=== PATIENT | female | born 1945 | race Caucasian/White ===

== ENCOUNTER → 2016-02-13 | Outpatient (CLI) | payer OTHER, BC ==
--- NOTE | 2016-02-13 13:56 | MA ---
Bilateral Digital Screening Mammography Clinical History: 70-year-old female with no family history of breast cancer who presents for routine annual mammographic screening. Technique: Digital CC and MLO views of each breast are compared to previous studies dated January 08, 2015, December 19, 2013, December 15, 2012, December 02, 2011, November 07, 2010, and October 07, 2009 . This examination was processed by the [employer] computer-aided detection system. The mammography technol ogist indicates the patient told her that she has an arthritic left shoulder. There is therefore limi terri left MLO view obtained with suboptimal inclusion of the posterior pectoralis muscle. Breast Density: Type B. CAD Evaluation: Reviewed. Findings: There is a mild residual fibroglandular pattern, which is stable. Benign-appearing intramam byron lymph nodes are seen on the right, and there are benign-appearing right axillary lymph nodes als o identified. There are no new suspicious clustered microcalcifications. Impression: Negative mammography. BI-RADS Category: 1. Recommendation: Routine annual mammographic screening. [facility] will send a result letter to the patient. Negative mammography should not preclude additional work-up of a clinically suspicious finding. The patient's information is entered into a reminder system with a target due date for her next mammo gram.
== END ==
LOC: FIMAGING 12:12
DX: Z12.31 Encounter for screening mammogram for malignant neoplasm of breast (principal)
CPT/HCPCS: G0202

== ENCOUNTER → 2017-02-15 | Outpatient (CLI) | payer OTHER, BC | LOC: FIMAGING 10:04 | PROVIDERS: ATTEND Legal Medicine | DX: Z12.31 Encounter for screening mammogram for malignant neoplasm of breast (principal) ==

== ENCOUNTER → 2017-03-02 | Outpatient (CLI) | payer OTHER, BC | LOC: BMCIMAGING 12:36 | PROVIDERS: ATTEND Family Medicine | DX: Z13.820 Encounter for screening for osteoporosis (principal) ==

== ENCOUNTER 2018-01-03 06:14 | Inpatient (IN) | payer OTHER, BC ==
[~2018-01-03 06:14] MED LIST: ROPIVACAINE 0.2% 80 MG, EPINEPHrine 0.2 MG, KETOROLAC TROMETHAMINE 30 MG in SYRINGE 0 ML IU ONE; TRANEXAMIC ACID 3,000 MG in NS (SYRINGE) 50 ML IRR ONE
[2018-01-03] MEDS ORDERED: DEXAMETHASONE 4 MG/ML VIAL IVP ONE (06:25)
[2018-01-03] MEDS ORDERED: ceFAZolin 2 GM/DEXTROSE 100 ML IV ONE (06:25)
[2018-01-03] MEDS ORDERED: ACETAMINOPHEN 325 MG TAB PO ONE (06:25)
[2018-01-03] MEDS ORDERED: FAMOTIDINE 20 MG TAB PO ONE (06:25)
[2018-01-03] MEDS ORDERED: LR 1,000 ML IV ONE (06:27)
[2018-01-03] MEDS ORDERED: CALCIUM CHLORIDE 1 GM/10 ML INJ ONE (07:38)
[2018-01-03] MEDS ORDERED: THROMBIN (BOVINE) 5,000 UNIT VIAL TP ONE (07:38)
[2018-01-03] MEDS ORDERED: ceFAZolin 1 GM/5 ML SYR ONE (07:39)
[2018-01-03] MEDS ORDERED: MIDAZOLAM 2 MG/2 ML VIAL IVP ONE (07:44)
--- NOTE | 2018-01-03 07:44 | PDANEPAE ---
ANE History of Present Illness Left TKA for left knee pain ANE Past Medical History - Cardiovascular History Hx Hypertension: No Hx Arrhythmias: No Hx Chest Pain: No Hx Coronary Artery / Peripheral Vascular Disease: No Hx CHF / Valvular Disease: No Hx Palpitations: No Cardiovascular History Comment: high chol - Pulmonary History Hx COPD: No Hx Asthma/Reactive Airway Disease: No Hx Recent Upper Respiratory Infection: No Hx Oxygen in Use at Home: No Hx Sleep Apnea: No Sleep Apnea Screening Result - Last Documented: Negative Pulmonary History Comment: "sneezy" on Loatidine for allergies - Neurologic History Hx Cerebrovascular Accident: No Hx Seizures: No Hx Dementia: No Neurologic History Comment: migraines - Endocrine History Hx Diabetes: No Hypothyroid: No Hyperthyroid: No Obesity: mild - Renal History Hx Renal Disorders: Yes Renal History Comment: recent bladder infection- took abx, cultured over weekend pcp will following up on that - Liver History Hx Hepatic Disorders: No - Neurological & Psychiatric Hx Hx Neurological and Psychiatric Disorders: No Neurological / Psychiatric History Comment: Rx for sleep - Cancer History Hx Cancer: No - Congenital Disorder History Hx Congenital Disorders: No - GI History GERD: no Hx Gastrointestinal Disorders: No - Other Health History Other Health History: bone on bone in right shoulder. wears glasses - Chronic Pain History Chronic Pain: Yes (left knee and right shoulder) - Surgical History Prior Surgeries: 01/06/16 Right TKA with [place]. appy. nic yan . knee scope ANE Review of Systems Review of Systems: - Exercise capacity Exercise capacity: >=4 METS METS (RN): 4 METS ANE Patient History - Allergies Allergies/Adverse Reactions: No Known Allergies Allergy (Verified 12/27/17 10:27) - Home Medications Home Medications: Loratadine [Claritin 10 mg] 10 mg PO DAILY 11/01/14 [Last Taken 01/01/18] Simvastatin [Zocor] 20 mg PO HS 11/26/15 [Last Taken 01/02/18] Aspirin [Aspirin 81mg (*)] 81 mg PO DAILY 12/23/17 [Last Taken 12/27/17] Herbals/Supplements -Info Only 1 ea PO DAILY 12/23/17 [Last Taken 12/27/17] Zolpidem Tartrate [Ambien 5MG (*)] 5 mg PO HS PRN 12/23/17 [Last Taken 01/02/18] Scopolamine [Transderm-Scop] 1 each TD HS PRN 01/03/18 [Last Taken 01/02/18 22: 00] Sulfamethox/Tmp 800/160 mg [Bactrim Ds] 1 tab PO BID 01/03/18 [Last Taken ] - NPO status NPO Since - Liquids (Date): 01/02/18 NPO Since - Liquids (Time): 23:00 NPO Since - Solids (Date): 01/02/18 NPO Since - Solids (Time): 18:00 - Anes Hx Anes Hx: post operative nausea - Smoking Hx Smoking Status: Former smoker - Family Anes Hx Family Anes Hx: none Family Hx Anesthesia Complications: none ANE Labs/Vital Signs - Vital Signs Blood Pressure: 111/56 Heart Rate: 67 Respiratory Rate: 16 O2 Sat (%): 95 Height: 157.48 cm Weight: 72.575 kg ANE Physical Exam - Airway Neck exam: FROM Mallampati Score: Class 2 Mouth exam: normal dental/mouth exam - Pulmonary Pulmonary: no respiratory distress - Cardiovascular Cardiovascular: regular rate and rhythym - ASA Status ASA Status: II ANE Anesthesia Plan Anesthesia Plan: spinal Regional Anesthesia: adductor canal FNB
[2018-01-03] MEDS ORDERED: BUPIVACAINE/DEXTROSE 7.5MG/ML 2 ML SPINAL AMP SP ONE (08:07)
[2018-01-03] MEDS ORDERED: PROPOFOL/EMULSION 500 MG/50 ML BOTTLE IV ONE (08:07)
[2018-01-03] MEDS ORDERED: fentaNYL 100 MCG/2 ML INJ ONE ×2 (08:08→11:26)
[2018-01-03] MEDS ORDERED: TRANEXAMIC ACID 3,000 MG/50 ML BAG IRR ONE (08:08)
--- NOTE | 2018-01-03 08:08 | PDHPUP ---
History & Physical Update H&P update statement: This history and physical update is based on an assessment of the patient which was completed after admission or registration (within 24 hours), but prior to the surgery/procedure. H&P update: H&P reviewed & patient examined, no change in patient's condition since H&P completed
[2018-01-03] MEDS ORDERED: DEXAMETHASONE 4 MG/ML VIAL ONE ×2 (08:48)
[2018-01-03] MEDS ORDERED: ePHEDrine SULFATE 25 MG/5 ML SYR ONE (09:19)
[2018-01-03] MEDS ORDERED: PROPOFOL 200 MG/20 ML VIAL ONE ×2 (09:41→10:33)
[2018-01-03] MEDS ORDERED: ONDANSETRON 4 MG/2 ML VIAL ONE (10:18)
[2018-01-03] MEDS ORDERED: ROPIVACAINE HCL 150 MG/30 ML INJ ONE (10:23)
[2018-01-03] MEDS ORDERED: PROMETHAZINE HCL 25 MG/ML INJ IVP PRN ×2 (10:26→10:58)
[2018-01-03] MEDS ORDERED: LABETALOL HCL 20 MG/4 ML INJ IVP PRN (10:26)
[2018-01-03] MEDS ORDERED: MEPERIDINE 25 MG/0.5 ML AMP IVP PRN (10:26)
[2018-01-03] MEDS ORDERED: NALOXONE HCL 0.4 MG/ML INJ IVP PRN (10:26)
[2018-01-03] MEDS ORDERED: fentaNYL 100 MCG/2 ML INJ IVP PRN (10:26)
[2018-01-03] MEDS ORDERED: ACETAMINOPHEN 500 MG TAB PO PRN (10:26)
[2018-01-03] MEDS ORDERED: HYDROmorphONE/DILAUDID 2 MG/ML INJ IVP PRN (10:26)
[2018-01-03] MEDS ORDERED: METOCLOPRAMIDE 10 MG/2 ML VIAL IVP PRN ×2 (10:26→10:58)
[2018-01-03] MEDS ORDERED: oxyCODONE IR 5 MG TAB PO PRN (10:26)
[2018-01-03] MEDS ORDERED: ALBUTEROL 3 ML DEYVIAL IH PRN (10:26)
[2018-01-03] MEDS ORDERED: LR 500 ML IV PRN (10:26)
[2018-01-03] MEDS ORDERED: ONDANSETRON 4 MG/2 ML VIAL IVP PRN (10:58)
[2018-01-03] MEDS ORDERED: HYDROmorphONE/DILAUDID 1 MG/ML INJ IVP PRN (10:58)
[2018-01-03] MEDS ORDERED: MAGNESIUM HYDROXIDE 30 ML UDCUP PO PRN (10:58)
[2018-01-03] MEDS ORDERED: PROMETHAZINE HCL 25 MG SUPPR PR PRN (10:58)
[2018-01-03] MEDS ORDERED: diphenhydrAMINE 25 MG CAP PO PRN (10:58)
[2018-01-03] MEDS ORDERED: DIPHENOXYLATE/ATROPINE LOMOTIL 1 TAB PO PRN (10:58)
[2018-01-03] MEDS ORDERED: POLYETHYLENE GLYCOL 3350 17 GM PKT PO PRN (10:58)
[2018-01-03] MEDS ORDERED: LACTULOSE 20 GM/30 ML UDCUP PO PRN (10:58)
[2018-01-03] MEDS ORDERED: BISACODYL 10 MG SUPP PR PRN (10:58)
[2018-01-03] MEDS ORDERED: LR 1,000 ML IV SCH (11:00)
[2018-01-03] MEDS ORDERED: ZOLPIDEM TARTRATE 5 MG TAB PO PRN (11:06)
--- NOTE | 2018-01-03 11:09 | SOAPPROG ---
SOAP Progress Note Assessment/Plan: Assessment/Plan: 72y/o female s/p left TKA - stable and doing well - orders as written - active care system, ASA starts tomorrow - post-op xrays pending - PT/OT - call with any issues or concerns 01/03/18 11:07 Subjective: Doing well, left leg a bit achy Objective: Vital Signs Temp Pulse Resp BP Pulse Ox 36.5 C 67 16 111/56 L 95 01/03/18 06:49 01/03/18 10:26 01/03/18 10:26 01/03/18 10:26 01/03/18 10:26 NAD, waking from anesthesia VSS, EOMi, face symmetric incision clean, dressed ICD10 Worksheet Patient Problems: Problems Problem Status Onset Altered consciousness Acute Complicated migraine Acute Hyperlipemia Acute Osteoarthritis Acute Seasonal allergies Acute
--- NOTE | 2018-01-03 11:11 | POSTOPPROG ---
Post Op Note Date of Operation: 01/03/18 Surgeon: Jenn Raman Senior Recruitment Consultant: Amanda Delacruz PA-C Anesthesiologist: Dr. Snyder Anesthesia: Spinal Pre-op Diagnosis: left knee osteoarthritis Post-op Diagnosis: left knee osteoarthritis Indication: severe osteoarthritis, knee pain Procedure: left TKA Inf/Abcess present in the surg proc area at time of surgery?: No EBL: Minimal Complications: none
--- NOTE | 2018-01-03 11:13 | POSTANESTH ---
Post Anesthetic Evaluation Cardiovascular Status: Normal, Stable Respiratory Status: Normal, Stable Level of Consciousness/Mental Status: Can Participate in Eval Pain Control: Adequate, Prn Tx Ordered Nausea/Vomiting Control: Adequate, Prn Tx Ordered Complications Possibly Related to Anesthesia: None Noted
[2018-01-03] MEDS: ACETAMINOPHEN 325 MG TAB PO SCH ×2 (12:56→17:12)
[2018-01-03] MEDS: ceFAZolin 2 GM/DEXTROSE 100 ML IV SCH (17:11)
[2018-01-03] MEDS: SENNOSIDES/DOCUSATE SODIUM TAB PO SCH (20:28)
[2018-01-03] MEDS: SULFAMETHOX/TMP 800/160 MG 1 TAB PO SCH (20:29)
[2018-01-03] MEDS: FAMOTIDINE 20 MG TAB PO SCH (20:29)
[2018-01-03] MEDS: ATORVASTATIN CALCIUM 10 MG TAB PO SCH (20:29)
[2018-01-04] MEDS: ACETAMINOPHEN 325 MG TAB PO SCH ×5 (00:19→23:27)
[2018-01-04] MEDS: ceFAZolin 2 GM/DEXTROSE 100 ML IV SCH (00:20)
[2018-01-04] MEDS: ASPIRIN 325 MG TAB PO SCH (08:51)
[2018-01-04] MEDS: CETIRIZINE 10 MG TAB PO SCH (08:51)
[2018-01-04] MEDS: SENNOSIDES/DOCUSATE SODIUM TAB PO SCH ×2 (08:52→21:24)
[2018-01-04] MEDS: SULFAMETHOX/TMP 800/160 MG 1 TAB PO SCH ×2 (08:52→21:24)
[2018-01-04] MEDS: FERROUS SULFATE 140 MG TAB.ER PO SCH (08:52)
[2018-01-04] MEDS: FAMOTIDINE 20 MG TAB PO SCH ×2 (08:53→21:24)
[2018-01-04] MEDS: HYDROmorphONE/DILAUDID 2 MG TAB PO PRN ×5 (08:53→22:33)
--- NOTE | 2018-01-04 11:22 | ASMTCMCOM ---
CM Note CM Note Notes: Discussed with PT, patient has an outpatient rehab appt scheduled for Wednesday - this seems to be appropriate per therapy's recommendation. No CM needs identified at this time. D/W RN. CM available should needs arise. Plan: Independent Date Signed: 01/04/2018 11:21 AM Electronically Signed By:Adelina Sandoval RN
--- NOTE | 2018-01-04 14:04 | SOAPPROG ---
SOAP Progress Note Assessment/Plan: Assessment/Plan: 72y/o female s/p left TKA POD#1 - stable and doing well - post-op xrays stable - active care system, ASA - patient with mild drainage from inferior portion of incision - discussed with Dr. Raman; steri strips placed over inferior portion of incision in sterile fashion; pressure dressing placed. will keep patient in knee immobilizer and f/ u in 48 hours for dressing change and progression of ROM. Patient to call prior to that time with any noticeable incisional drainage - call with any issues or concerns 01/04/18 14:01 Subjective: Pain well controlled. Minimal nausea. Bleeding increased with stairs, increased ambulation Objective: Vital Signs Temp Pulse Resp BP Pulse Ox 36.6 C 64 13 107/53 L 94 01/04/18 12:00 01/04/18 12:00 01/04/18 12:00 01/04/18 12:00 01/04/18 12:00 Laboratory Results 01/04/18 04:42 01/03/18 01/04/18 01/05/18 05:59 05:59 05:59 Intake Total 3120 Output Total 1000 250 Balance 2120 -250 NAD, well appearing, no distress EOMi, face symmetric knee extension near full flexion 90 incision with mild bloody drainage from inferior portion of incision steri strips and pressure dressing placed in sterile fashion ICD10 Worksheet Patient Problems: Problems Problem Status Onset Altered consciousness Acute Complicated migraine Acute Hyperlipemia Acute Osteoarthritis Acute Seasonal allergies Acute
--- NOTE | 2018-01-04 14:27 | ASMTLACE ---
SAMEER Acuity / Level of Answers: Yes Care: Did the patient have an inpatient admission? Comorbidities - select Answers: Opioid dependence all that apply / Chronic pain # of Emergency department Answers: 0 visits in the last 6 months Score: 7 Date Signed: 01/04/2018 02:27 PM Electronically Signed By:Adelina Sandoval RN
[2018-01-04] MEDS: CYCLOBENZAPRINE 10 MG TAB PO PRN ×2 (14:45→22:33)
--- NOTE | 2018-01-04 15:05 | PDMN ---
Medical Necessity Medical necessity: [facility] [place] Knee Arthroplasty: 72 to s/p L TKA, per PA pt admit as IP as has advanced age, struggled severely w/ post-op nausea and pain control after her R TKA 2 years ago and required >2MN. Anticipate>2MN for this TKA.
[2018-01-04] MEDS ORDERED: HYDROmorphONE/DILAUDID 2 MG TAB PO ONE (15:11)
[2018-01-04] MEDS: ATORVASTATIN CALCIUM 10 MG TAB PO SCH (21:24)
[2018-01-04] MEDS: ONDANSETRON DISINTEGRATING 4 MG TAB PO PRN (22:33)
[2018-01-04 23:41] VITALS: BP 112/61
[2018-01-05] MEDS: HYDROmorphONE/DILAUDID 2 MG TAB PO PRN ×3 (02:20→10:14)
[2018-01-05] MEDS: ACETAMINOPHEN 325 MG TAB PO SCH (06:17)
[2018-01-05] MEDS: ONDANSETRON DISINTEGRATING 4 MG TAB PO PRN (06:20)
[2018-01-05] MEDS: CETIRIZINE 10 MG TAB PO SCH (09:54)
[2018-01-05] MEDS: ASPIRIN 325 MG TAB PO SCH (09:54)
[2018-01-05] MEDS: FAMOTIDINE 20 MG TAB PO SCH (09:54)
[2018-01-05] MEDS: FERROUS SULFATE 140 MG TAB.ER PO SCH (09:54)
[2018-01-05] MEDS: SENNOSIDES/DOCUSATE SODIUM TAB PO SCH (09:54)
--- NOTE | 2018-01-05 10:49 | ASMTCMCOM ---
CM Note CM Note Notes: Pt medically stable for d/c, no CM d/c needs identified. Date Signed: 01/05/2018 10:48 AM Electronically Signed By:CHEMO Montero
--- NOTE | 2018-01-06 16:31 | GDS ---
ADMISSION DIAGNOSIS: Left knee osteoarthritis. DISCHARGE DIAGNOSIS: Left knee osteoarthritis. HOSPITAL COURSE: The patient is a pleasant 72-year-old female, well known to our service for ongoing left knee osteoarthritis. After careful decision- making and discussion, as well as failure of nonoperative management, she elected to proceed forth with a total knee arthroplasty. This surgery was done by Dr. Jenn Raman on January 03, 2018. The patient tolerated the procedure well and was transferred to the PACU without complication. There, she received an adductor canal block for aid in pain management, she was doing well and transferred to the floor when PACU criteria was met. She worked with Physical Therapy and Occupational Therapy and continued to make progress. She did have a bit of incisional drainage at the inferior portion of her incision. A pressure dressing was placed, and she was placed in a knee immobilizer to allow for further incisional healing. She was given strict instruction to follow up in 2 days in our office for re-evaluation of her incision, sooner with any issues or changes. Her pain was well managed, and she was in good and stable condition and ready for discharge home on January 05, 2018. All of her questions were answered prior to discharge. /[id number]/MODL MTDD
--- NOTE | 2018-01-07 06:20 | GOP ---
DATE OF OPERATION: 01/03/2018 SURGEON: Jenn Raman MD SUPPLY CHAIN SPECIALIST: Amanda Delacruz, CLOVER ANESTHESIA: Spinal with sedation and adductor canal block. PREOPERATIVE DIAGNOSIS: Severe osteoarthritis, left knee. POSTOPERATIVE DIAGNOSIS: Severe osteoarthritis, left knee. PROCEDURE PERFORMED: Left total knee arthroplasty. FINDINGS: Preoperative x-rays of the patient's left knee demonstrated severe osteoarthritis with com plete loss of the joint spaces. At the time of surgery, this finding was confirmed. The patient had severe osteoarthritis of the medial compartment and the patellofemoral joint and moderate changes in the lateral compartment. A cemented Thompson [employer] Nephew Journey II total knee arthroplasty was perform ed. A size 3 left femoral Oxinium-coated femoral component was cemented into place, and a size 2 tib ial base plate was utilized on the tibial side. This was also cemented into place. An 11 mm cross-l inked polyethylene insert was placed in the metal backing of the tibia. A 32 mm round patellar compo nent was used to resurface the patella. Following implantation of the components, the knee was taken through range of motion and was noted to be stable in extension and 30 degrees of flexion. The flex ion and extension gaps were symmetrical prior to implantation of the components. The patient did ach ieve full extension on the table. ESTIMATED BLOOD LOSS: Less than 100 cc. DESCRIPTION OF PROCEDURE: The patient was taken to the operating room, placed in supine position on the operating table. Following induction of adequate spinal anesthesia and induction of adequate sed ation, the leg and knee were prepped and draped in usual sterile manner. The patient received 1 g of IV Ancef. The leg was elevated and exsanguinated and the tourniquet inflated to 275 mmHg. A midlin e incision was made extending from 2 fingerbreadths above the superior pole of patella distally to th e tibial tubercle. The incision was carried down through the subcutaneous tissue to the retinaculum of the knee. A medial parapatellar arthrotomy was performed, and the patella was everted laterally. The thickness of the patella was measured and then a 9 mm cut was taken from the posterior aspect of the patella. The patella was sized and then the metal protector plate was placed on the cut surface . The patella was placed in the lateral gutter. Next, the knee was flexed up, and the [facility] leg h older was used to position the knee through the remainder of the procedure. The distal femoral drill hole was made, and then the distal femoral cutting block was positioned and pinned. A +2 cut was ta deborah on the distal femur due to a preoperative flexion contracture. Once the distal femoral cut was m carmela, the femur was measured, and the size 3 cutting block was chosen as the best size. This was plac ed on the distal femur and pinned, and then the anterior, posterior, and chamfer cuts were made. The cutting block was removed, and the trial component was positioned on the distal femur. The notch wa s then cleared with a reamer followed by the box osteotome. The distal femoral component was removed , and our attention was turned to the tibia. This was retracted anteriorly, and a drill hole was lacey fabiola in the tibia for intramedullary referencing of the tibial cutting block. The cutting block was p ositioned and pinned, and then the tibial cut was made. The flexion and extension gaps were checked and noted to be symmetrical. The back of the knee was then cleared out. The lamina screen printing cloth spreader was use d, and the posterior capsule was released from the back of the tibia. The posterior capsule was inje cted with joint cocktail and tranexamic acid to diminish the postoperative bleeding. The knee was th en flexed up, and the tibia was measured. The tibial component was pinned, and then the femoral comp onent was placed on the distal femur, and a trial reduction was performed with the 10 and 11 mm thick polyethylene inserts. The 11 mm thick polyethylene was the best fit. The trial components were rem davdi except for the tibia, and then the keel jig was impacted. The remaining tibial component was re moved, and the bony surfaces were thoroughly irrigated and dried. The cement was mixed on the back t able. The components were opened. The tibial component was cemented first, followed by the femoral component and the patellar component. All excess cement was removed from around the edges of the com ponents using Freers and curettes. The knee was then brought into extension and held while the cemen t hardened. Once the cement was hard, the trial polyethylene was removed, and the 11 mm thick cross- linked polyethylene insert was placed in the knee. The knee was taken through a range of motion, and excellent range of motion was obtained on the table. The knee was stable. The wound was thoroughly irrigated, and the remainder of the tranexamic acid was injected into the knee. The retinaculum of the knee was closed using #2 FiberWire in a [id number] fashion. The subcutaneous tissues were c losed using 2-0 Vicryl, and the skin was closed using danielle. Sterile dressings were applied. The patient tolerated procedure well, and there were no complications. Estimated blood loss minimal. Fi nal sponge and needle counts were correct. The patient was transported to the recovery room in good condition. /[id number]/MODL
== END 2018-01-05 11:18 | disposition home or self-care (01) | DRG 470 ==
LOC: F3N 06:14 → OBSVTOIN 11:05 → F3N 12:30
PROVIDERS: ADMIT Orthopaedic Surgery; ATTEND Orthopaedic Surgery
PROC: 0SRD0J9 Replacement of Left Knee Joint with Synthetic Substitute, Cemented, Open Approach (ICD-10-PCS; principal; 2018-01-03 08:15)
DX: M17.12 Unilateral primary osteoarthritis, left knee (principal); E78.00 Pure hypercholesterolemia, unspecified; G43.909 Migraine, unspecified, not intractable, without status migrainosus; Z96.651 Presence of right artificial knee joint
CPT/HCPCS: 97110-GP; 97116-GP; 97161-GP; 97165-GO; C1713; G8978-GP-CK; G8979-GP-CI; G8980-GP-CI; G8987-GO-CI; G8988-GO-CI; G8989-GO-CI; J0171; J0690; J1100; J1885; J2250; J2405; J2704; J2795; J3010

== ENCOUNTER → 2018-03-04 | Outpatient (CLI) | payer OTHER, BC | LOC: FIMAGING 10:06 | PROVIDERS: ATTEND Legal Medicine | DX: Z12.31 Encounter for screening mammogram for malignant neoplasm of breast (principal) ==

== ENCOUNTER → 2018-03-11 | Outpatient (CLI) | payer OTHER, BC | LOC: FIMAGING 08:03 | PROVIDERS: ATTEND Internal Medicine | DX: R92.8 Other abnormal and inconclusive findings on diagnostic imaging of breast (principal) ==